=== PATIENT | female | born 1965 | race Caucasian/White ===

== ENCOUNTER 2016-09-24 10:52 | Emergency (ER) | payer BC ==
--- OUTSIDE RECORDS SUMMARY | 2016-09-24 14:13 | XMS REPORT | Continuity of Care Document ---
:1965 Author Organization [facility] ([facility]) Address [address] [place] [address] Phone [phone] Care Team Providers Name Role Phone Som Floyd Roxanna Primary Care Provider [phone] Source Comments This disclosure is being made pursuant to the Care Everywhere program, applicable federal and state laws, and may not contain all informaitonavailable regarding this patient.[facility] ([facility]) Active Allergies and Adverse Reactions No Known Allergies Current Medications Prescription Sig. Disp. Refills Start Date End Date Status albuterol (PROAIR HFA) Use 2 Puffs by Active 90 mcg/Actuation inhaler inhalation every 6 hours as needed. loratadine 10 mg tablet Take 10 mg by mouth Active daily. ibuprofen 200 mg tablet Take 400 mg by mouth Active every 6 hours as needed for Pain. acetaminophen 500 mg Take 1,000 mg by Active tablet mouth every 6 hours as needed for Pain. Active Problems Problem Noted Date Health maintenance examination 06/03/2010 Last Assessment & Plan: CXR 06/07, Mammogram 05/08, Pap Smear 06/07. Endometrial cancer 12/03/2009 Overview: CANCER TREATMENT TO DATE On 01/15/05 the patient underwent a KERON/BSO with bilateral pelvic and paraaortic lymph node dissection and abdominal washings. The patient was diagnosed with a stage IB, GradeII endometrioid adenocarcinoma. The patient had positive capillary-lymphatic space invasion. Recommendations were for vaginal brachytherapy, and she completed three treatments on 03/31/05. Resolved Problems Problem Noted Date Resolved Date Abnormal mammogram, unspecified 09/04/2006 12/03/2009 Other screening mammogram 08/29/2005 12/03/2009 Social History Tobacco Use Types Packs/Day Years Used Date Never Smoker Alcohol Use Drinks/Week oz/Week Comments No Last Filed Vital Signs Vital Sign Reading Time Taken Blood Pressure 140/80 02/07/2014 11:09 AM CDT Pulse 87 02/07/2014 11:09 AM CDT Temperature 36.5 C (97.7 F) 02/07/2014 11:09 AM CDT Respiratory Rate 20 02/07/2014 11:09 AM CDT Height 1.62 m (5' 3.78") 12/03/2009 9:47 AM CDT Weight 103.42 kg (228 lb) 02/03/2014 9:53 AM CDT Body Mass Index 39.41 02/03/2014 9:53 AM CDT Oxygen Saturation 97% 02/03/2014 7:54 PM CDT Plan of Care Health Maintenance Due Date Last Done Comments HCV Screening 1965 Hepatitis B Vaccine (1 of 3 1965 - Primary Series) Tdap Vaccine 1974 Lipid Disorder Screening 1981 MMR Vaccine 1981 Td Vaccine 1981 Pneumococcal Vaccine (1 of 3 1982 - PCV13) Mammogram 12/12/2007 12/11/2006, Additional history exists 06/05/2006, 11/28/2005 Cervical Cancer Screening 06/03/2013 06/03/2010, Additional history exists 06/04/2009, 03/15/2007 Colonoscopy 08/20/2013 Influenza Vaccine: Seasonal 01/28/2016 (#1) Results from Last 3 Months Not on file
--- NOTE | 2016-09-24 14:15 | ERNOTE ---
Time Seen by Provider: 09/24/16 13:42 Stated Complaint: URI Presenting Symptoms:: cough, runny nose Source: patient Allergies/Adverse Reactions: Allergies No Known Allergies Allergy (Verified 09/24/16 11:32) Home Medications: HOME MEDICATIONS Azithromycin [Zithromax] 250 mg PO DAILY #6 tablet 09/24/16 [Last Taken Unknown] Benzonatate [Tessalon Perle] 100 mg PO TID #20 capsule 09/24/16 [Last Taken Unknown] Loratadine [Claritin] 10 mg PO DAILY 09/24/16 [Last Taken Unknown] - History of Present Ilness Narrative: Pt presents with a cough and congestion over the past few days. Timing: intermittent Severity: mild Frequency/Possible Cause: Reports: no prior episodes Associated Symptoms: Reports: cough Review of Systems - Review of Systems Constitutional: Present: See HPI EYE: Present: no symptoms reported ENT: Present: See HPI, nose congestion Respiratory: Present: cough Cardiology: Present: no symptoms reported Gastrointestinal/Abdominal: Present: no symptoms reported Genitourinary: Present: no symptoms reported Musculoskeletal: Present: no symptoms reported Skin: Present: no symptoms reported Neurological: Present: no symptoms reported Endocrine: Present: no symptoms reported Hematologic/Lymphatic: Present: no symptoms reported Psych: Present: no symptoms reported - Patient's Past Medical History Patient History - Medical: No pertinent hx Patient History - Cardiac/Respiratory: No pertinent hx Patient History - Cancer: No Hx of Cancer Patient History - Surgical Procedures: No surgical history Physical Exam - Physical Exam General Appearance: Present: wd/wn, alert, mild distress Eye Exam: Normal inspection: bilateral, PERRL: bilateral Ears, Nose, Throat: Present: nasal congestion, normal pharynx Neck: Present: normal inspection, nontender Respiratory: Present: no respiratory distress, no accessory muscle use, chest nontender, lungs clear, other - fine coarse breath sounds Cardiovascular/Chest: Present: regular rate, rhythm, no murmur, normal peripheral pulses Gastrointestinal/Abdominal: Present: normal bowel sounds, nontender, nondistended, soft, no organomegaly Rectal Exam: Present: deferred Back Exam: Present: normal inspection, normal range of motion Extremity Exam: Present: normal inspection, non-tender, no edema, normal range of motion Neurological Exam: Present: alert, oriented, normal mood/affect Skin Exam: Present: normal color, warm/dry Lymphatic Exam: Present: no adenopathy ED Progress - Results and Orders Patient's Lab Results:: I have reviewed the patient's lab results. - Vital Signs Patient's Vital Signs:: I have reviewed the patient's vital signs. Vital Signs: Vital Signs 09/24/16 11:30 Temperature 36.5 C Pulse Rate 81 Respiratory 16 Rate Blood Pressure 134/67 O2 Sat by Pulse 96 Oximetry - Progress/Reassessment Chief Complaint: Upper Respiratory Symptoms Progress:: Unchanged Departure - Departure Clinical Impression: URI (upper respiratory infection) Qualifiers: URI type: unspecified URI Qualified Code(s): J06.9 - Acute upper respiratory infection, unspecified Condition: Good Instructions: Upper Respiratory Infection, Adult, [id number] Referrals: Serjio Pemberton DO [Primary Care Provider] - Prescriptions: Azithromycin [Zithromax] 250 mg PO DAILY #6 tablet Benzonatate [Tessalon Perle] 100 mg PO TID #20 capsule
[2016-09-24 14:19] VITALS: BP 111/81
== END 2016-09-24 14:20 | disposition home or self-care (01) ==
LOC: ER 10:52
DX: J06.9 Acute upper respiratory infection, unspecified (principal)